=== PATIENT | female | born 1960 | race Caucasian/White ===

== ENCOUNTER → 2024-04-16 09:37 | Outpatient (BNVA) | payer MEDICARE, SELFPAY | PROVIDERS: Visit Provider Specialist | DX: R90.82 White matter disease, unspecified (principal); G37.9 Demyelinating disease of central nervous system, unspecified; G31.84 Mild cognitive impairment of uncertain or unknown etiology; G43.101 Migraine with aura, not intractable, with status migrainosus | CPT/HCPCS: 99205 ==

== ENCOUNTER 2024-04-24 11:24 | Outpatient (CLI) | payer MEDICARE, SELFPAY ==
--- NOTE | 2024-04-24 12:15 | CT_ITS ---
WS: [id number] CT ANGIOGRAM CEREBRAL AND CAROTID ARTERIES HISTORY: R90.82 - White matter disease, unspecified TECHNIQUE: CT angiogram is performed of the carotid and cerebral arteries. During arterial injection imaging is obtained from the skull vertex to the aortic arch in 1.25 mm imaging. Coronal and sagittal reformats are submitted. Additional multi planar reformats of the carotid and cerebral arteries are submitted, MIP imaging also reviewed. NASCET criteria utilized. [facility] CT [facility] at least one of these dose optimization techniques: automated exposure control; mA and/or kV adjust ment per patient size (includes targeted exams where dose is matched to clinical indication); or iter ative reconstruction. CONTRAST: Omnipaque 350; 100 mL IV. DLP: 1208.94 mGy.cm COMPARISON: None available. CT head: Mild atrophy and mild small vessel disease. No acute hemorrhage. No midline shift. No edema. Carotid Angiogram: Right carotid: Common carotid artery: Normally arises from the innominate artery. There is mild intimal thickening a nd plaque towards the bifurcation. Bifurcation is intact. Internal carotid artery: Mild plaque at the bifurcation with no stenosis. External carotid artery: Patent. Left carotid: Common carotid artery: Small amount of plaque at the origin of the LEFT common carotid artery. Mild p laque and intimal thickening at the bifurcation. Internal carotid artery: Mild plaque and intimal thickening at the bifurcation. No stenosis. External carotid artery: Patent. Right vertebral artery: Mild atherosclerotic disease in the proximal vertebral artery but no stenosis . Left vertebral artery: Unremarkable. Arises normally from the subclavian artery. Subclavian arteries: Intimal thickening and small amount of calcified plaque in the proximal LEFT sub clavian artery but no stenosis. Minimal atherosclerosis RIGHT subclavian artery. Upper thorax: Paraseptal emphysema. Thyroid gland: Subcentimeter LEFT thyroid nodules. Maximum diameter of the largest nodules 8 mm. Osseous structures: Degenerative cervical disc disease and osteophytosis, most significant at C4-5 an d C5-6. 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 There is no stenosis or significant amount of plaque. LEFT vertebral artery is intact although there is plaque through the foramen magnum. Basilar artery: No significant stenosis or occlusion. No aneurysm. Intracranial Internal carotid arteries: Moderate calcified plaque to the cavernous carotid arteries w ith stenosis estimated at 50 to 60% bilaterally. Small amount of plaque continues into the supraclino id carotid arteries. No occlusion. Middle cerebral arteries: Normal. Anterior cerebral arteries and ACOM: Normal. Posterior cerebral arteries and PCOM's: Normal. Dural venous sinuses are normally enhancing. Mastoid air cells: Normal. Paranasal sinuses: Normal. Calvarium: Normal. CT/CT angio headneck* [id number] IMPRESSION: 1. Mild atherosclerotic plaque and intimal thickening in the cervical carotid arteries and at the bifurcations. Stenosis less than 50%. 2. Moderate calcified plaque bilaterally through the cavernous and supraclinoi d carotid arteries. Stenoses estimated at 50 to 60%. 3. No occlusion within the [place] or significant atherosclerotic [place]. No aneurysm. 4. Bilateral subclavian artery mild atherosclerosis, greater on the LEFT than the RIGHT.
[2024-04-24] MEDS: iohexol 350 mg/mL 500 mL Btl (per mL) IV (12:21)
[2024-04-24 12:22] LABS: Blood Urea Nitrogen 17 mg/dL (8-23); Glomerular Filtration Rate 63.2 mL/min (90-130)
== END 2024-04-24 11:25 | disposition home or self-care (01) ==
LOC: RAD 11:28
PROVIDERS: PCP Internal Medicine; Visit Provider Specialist
DX: R90.82 White matter disease, unspecified (principal); I65.23 Occlusion and stenosis of bilateral carotid arteries; I70.8 Atherosclerosis of other arteries; R93.0 Abnormal findings on diagnostic imaging of skull and head, not elsewhere classified; I67.2 Cerebral atherosclerosis; J43.8 Other emphysema; E04.2 Nontoxic multinodular goiter; M50.321 Other cervical disc degeneration at C4-C5 level; M50.322 Other cervical disc degeneration at C5-C6 level; R93.89 Abnormal findings on diagnostic imaging of other specified body structures
CPT/HCPCS: 70496; 70498; 82565; 84520

== ENCOUNTER → 2024-10-01 10:36 | Outpatient (BNVA) | payer MEDICARE, SELFPAY | PROVIDERS: Visit Provider Specialist | DX: R90.82 White matter disease, unspecified (principal); G37.9 Demyelinating disease of central nervous system, unspecified; G31.84 Mild cognitive impairment of uncertain or unknown etiology; G43.101 Migraine with aura, not intractable, with status migrainosus; F17.210 Nicotine dependence, cigarettes, uncomplicated | CPT/HCPCS: 99215 ==

== ENCOUNTER 2024-10-09 12:18 | Outpatient (CLI) | payer MEDICARE, SELFPAY ==
--- NOTE | 2024-10-09 12:28 | MR_ITS ---
WS: [id number] MRI HEAD WITHOUT CONTRAST TECHNIQUE: Sagittal T1, T2 axial, T2 axial FLAIR, axial and coronal T1 images, axial susceptibility weighted imaging, axial diffusion weighted images, and coronal T2 images were obtained. CLINICAL INFORMATION: CEREBRAL INFARCTION/STROKE COMPARISON: None. FINDINGS: No evidence of restricted diffusion to suggest acute ischemia. Ventricular system and basal cisterns are patent. No hemosiderin on the susceptibility weighted images. No evidence of mass or mass effect. Normal optic chiasm and pituitary infundibulum. Mild symmetric atrophy temporal lobes hippocampal formations. Normal posterior fossa. Normal vascular flow voids at the skull base. No extra-axial fluid collections. No evidence of mass or mass effect. Paranasal sinuses are well aerated. MR/MR head wo con* [id number] IMPRESSION: 1. No evidence of restricted diffusion to suggest acute ischemia. 2. Moderate small vessel changes with mild parenchymal volume loss. 3. No hemosiderin on the susceptibility weighted images. 4. Mild symmetric atrophy temporal lobes and hippocampal formations. 5. No other acute findings.
--- NOTE | 2024-10-09 12:28 | MR_ITS ---
WS: [id number] MRA HEAD TECHNIQUE: Axial 3-D TOF images obtained with axial images and axial, sagittal, and coronal 2-D reformatted images. CLINICAL INFORMATION: CEREBRAL INFARCTION/STROKE FINDINGS: Mild intracranial atheromatous disease. Distal vertebral arteries are patent. Basilar artery is patent. Normal vascularity to the [employer] territory bilaterally. Both ICAs are patent at the skull base. Normal vascularity to the [place] and MCA territories bilaterally. No evidence of proximal flow-limiting stenosis. MR/MR angio head wo con [id number] IMPRESSION: 1. Mild intracranial atheromatous disease. No proximal flow-limiting stenosis. 2. Otherwise unremarkable intracranial MRA.
== END 2024-10-09 12:19 | disposition home or self-care (01) ==
PROVIDERS: Visit Provider Specialist
DX: I63.9 Cerebral infarction, unspecified (principal); I67.2 Cerebral atherosclerosis; G37.9 Demyelinating disease of central nervous system, unspecified
CPT/HCPCS: 70544; 70551

== ENCOUNTER → 2024-11-19 07:47 | Outpatient (BNVA) | payer MEDICARE, SELFPAY | PROVIDERS: Visit Provider Specialist | DX: G37.9 Demyelinating disease of central nervous system, unspecified (principal); G31.84 Mild cognitive impairment of uncertain or unknown etiology; G43.111 Migraine with aura, intractable, with status migrainosus; F17.200 Nicotine dependence, unspecified, uncomplicated | CPT/HCPCS: 36415; 80503; 82040; 82042; 82542; 82784; 82945; 83520; 83916; 84157; 85651; 86160; 86162; 86235; 86255; 86376; 86592; 87070; 87075; 87205; 89050; 99214 ==

== ENCOUNTER → 2025-01-06 15:36 | Outpatient (BNVA) | payer MEDICARE, SELFPAY | PROVIDERS: Visit Provider Specialist | DX: R90.82 White matter disease, unspecified (principal); G31.84 Mild cognitive impairment of uncertain or unknown etiology; G37.9 Demyelinating disease of central nervous system, unspecified; G43.111 Migraine with aura, intractable, with status migrainosus; R03.0 Elevated blood-pressure reading, without diagnosis of hypertension; F17.210 Nicotine dependence, cigarettes, uncomplicated | CPT/HCPCS: 99215 ==